=== PATIENT | male | born 1995 | race Caucasian/White ===

== ENCOUNTER 2017-12-29 13:24 | Emergency (ER) | payer MEDICAID ==
[~2017-12-29] VITALS: Ht 180.3 cm; Wt 111.6 kg
[2017-12-29 13:42] VITALS: Ht 180.3 cm; Wt 111.6 kg
[2017-12-29 15:55] VITALS: BP 120/85
== END 2017-12-29 15:55 | disposition home or self-care (01) ==
LOC: ED 13:24
DX: S93.401A Sprain of unspecified ligament of right ankle, initial encounter (principal); J45.909 Unspecified asthma, uncomplicated; X58.XXXA Exposure to other specified factors, initial encounter; Y93.89 Activity, other specified; Y92.89 Other specified places as the place of occurrence of the external cause; Y99.8 Other external cause status